=== PATIENT | female | born 1995 | race Caucasian/White ===

== ENCOUNTER 2017-03-19 13:30 | Emergency (ER) | payer OTHER ==
[~2017-03-19] VITALS: Ht 152.4 cm; Wt 51.5 kg
[~2017-03-19 13:30] MED LIST: AZIT500I PO; CEPH500C3 PO; FERR324T4 PO; IBUP800T23 PO; METR-1 PO; OXYC1SOL5 PO; PREN0.01 PO; ZOVI400T15 PO
[2017-03-19 13:38] VITALS: BP 119/72; PULSE 89; RESP 16; TEMP 98.3; O2SAT 95
[2017-03-19] MEDS ORDERED: SODIUM CHLOR 0.9% 1000 ML INJ 1,000 ML IV ONE (14:15)
[2017-03-19 14:54] LABS: AUTOMATED NEUTROPHIL # 6.6 TH/MM3 (1.8-7.7); BASOPHIL % 0.3 % (0.0-2.0); EOSINOPHIL # 0.2 TH/MM3 (0-0.4); EOSINOPHIL % 1.7 % (0.0-4.0); HEMATOCRIT 42.7 % (35.0-46.0); HEMO FLAGS DIFF FINAL; LYMPH % 25.3 % (9.0-44.0); LYMPHOCYTE # 2.6 TH/MM3 (1.0-4.8); MEAN CELL VOLUME 83.2 FL (80.0-100.0); MEAN CORPUSCULAR HEMOGLOBIN 28.6 PG (27.0-34.0); MEAN CORPUSCULAR HGB CONC 34.4 % (32.0-36.0); MONO % 7.2 % (0.0-8.0); NEUT % 65.5 % (16.0-70.0); PLATELET COUNT 233 TH/MM3 (150-450); RED BLOOD COUNT 5.13 MIL/MM3 (4.00-5.30); RED CELL DISTRIBUTION WIDTH 13.2 % (11.6-17.2); WHITE BLOOD COUNT 10.1 TH/MM3 (4.0-11.0)
[2017-03-19 14:56] LABS: BACTERIA, URINE OCC /hpf; BLOOD, URINE LARGE (NEG); COMMENT (UR) CULTURE INDICATED; CULTURE IF INDICATED CULTURE INDICATED; GLUCOSE,URINE 1000 mg/dL (NEG); KETONE, URINE 10 mg/dL (NEG); MUCUS URINE FEW /lpf (OCC); NITRITE,URINE NEG (NEG); PH, URINE 6.5 (5.0-8.5); SQUAMOUS EPITHELIAL CELL URINE 8 /hpf (0-5); URINE COLOR LIGHT-RED (YELLW/STRAW)
[2017-03-19 15:29] LABS: BETA-HYDROXYBUTYRATE 0.14 MMOL/L (0.00-0.39)
[2017-03-19 15:31] LABS: BICARBONATE 23.8 MEQ/L (21.0-32.0); POTASSIUM 3.7 MEQ/L (3.5-5.1)
--- NOTE | 2017-03-19 16:51 | RADRPT ---
EXAM DATE/TIME: 03/19/2017 15:49 [facility] COMPARISON: No previous studies available for comparison. INDICATIONS : Vaginal bleeding. LAB(S): Beta-hC MEDICAL HISTORY : Hypercholesterolemia. Kidney stones. Diabetes. Depresion. Anxiety. Endocrine disorder. SURGICAL HISTORY : section. Lithotripsy. ENCOUNTER: Initial ACUITY: 1 week PAIN SCORE: 7/10 LOCATION: Bilateral pelvis MEASUREMENTS: UTERUS: 8.1 x 6.4 x 4.5 cm ENDOMETRIAL STRIPE: 11 mm RIGHT OVARY: 3.5 x 2.0 x 1.8 cm LEFT OVARY: 3.2 x 2.0 x 2.3 cm FREE FLUID: No FINDINGS: UTERUS: A cystic structure seen involving the endometrium. Mean sac diameter 1.72 cm which equals 6 weeks ges tational age. No discrete pole currently observed. A faint circular structure is felt to relate to the yolk sac. The myometrium is unremarkable. RIGHT OVARY: Ovary contains no mass or significant cystic lesion. LEFT OVARY: Ovary contains no mass or significant cystic lesion. MISCELLANEOUS: No free fluid. CONCLUSION: Intrauterine gestation with age by mean sac diameter of 6 weeks. No discrete pole currently see cornelius Luis Jr., MD on March 19, 2017 at 16:46 Board Certified Radiologist. This report was verified electronically.
[2017-03-19] MEDS ORDERED: AMOX500T PO (17:13)
--- NOTE | 2017-03-19 17:13 | PD ---
HPI Chief Complaint: Related Problem Time Seen by Provider: 14:02 Travel History International Travel<30 days: No Contact w/Intl Traveler<30days: No Traveled to known affect area: No History of Present Illness HPI Patient is a 21-year-old female who is currently , who comes in complaining of vaginal bleeding. She says she is bleeding for the past 3 days. She's had some lower abdominal cramping on and off. She denies any dizziness or lightheadedness. She was once before, and had a stillbirth due to heart defects. She has history of 2diabetes, but says she cannot afford her insulin because her Medicaid has not started yet. She denies any fever or chills. She denies any dysuria. PFSH Past Medical History ADD: Yes ADHD: Yes Autoimmune Disease: No Bipolar Disorder: Yes Anxiety: Yes Depression: Yes Cancer: No Cardiovascular Problems: Yes High Cholesterol: Yes (TRIGLYCERIDES) Diabetes: Yes Patient Takes Glucophage: No Diminished Hearing: No Endocrine: Yes Gastrointestinal Disorders: No Genitourinary: Yes Immune Disorder: No Implanted Vascular Access Dvce: No Kidney Stones: Yes Musculoskeletal: No Neurologic: No Psychiatric: Yes Reproductive: No Respiratory: No Migraines: No Seizures: No Shingles: No Sickle Cell Disease: No Thyroid Disease: No Ulcer: No Tetanus Vaccination: Unknown Influenza Vaccination: Yes ?: LMP: UNKNOWN : 1 Para: 1 Past Surgical History Appendectomy: No Section: Yes Cholecystectomy: No Genitourinary Surgery: Yes (LITHOTRIPSY) Oral Surgery: Yes (MOLARS X 4 REMOVED) Other Surgery: No Social History Alcohol Use: No Tobacco Use: Yes Substance Use: No Allergies-Medications (Allergen,Severity, Reaction): Coded Allergies: No Known Allergies (Unverified , 03/19/17) Reported Meds & Prescriptions Reported Meds & Active Scripts Active Amoxicillin 500 Mg Tab 500 Mg PO TID 7 Days Review of Systems Except as stated in HPI: all other systems reviewed are Neg General / Constitutional: No: Fever, Chills HENT: No: Headaches, Lightheadedness Cardiovascular: No: Chest Pain or Discomfort Respiratory: No: Shortness of Breath Gastrointestinal: No: Nausea, Vomiting Genitourinary: Positive: Vaginal Bleeding Skin: No Rash, No Change in Pigmentation Neurologic: No: Dizziness, Syncope Physical Exam Narrative GENERAL: Awake and alert, in no acute distress. SKIN: Focused skin assessment warm/dry. HEAD: Atraumatic. Normocephalic. EYES: Pupils equal and round. No scleral icterus. ENT: Mucous membranes pink and moist. NECK: Trachea midline. No JVD. CARDIOVASCULAR: Regular rate and rhythm. No murmur appreciated. RESPIRATORY: No accessory muscle use. Clear to auscultation. Breath sounds equal bilaterally. GASTROINTESTINAL: Abdomen soft, non-tender, nondistended. : Exam performed in the presence of a female nurse. There is blood in the vaginal vault, minimal blood from the os. No CMT. External os is open, but internal os closed. MUSCULOSKELETAL: No obvious deformities. No clubbing. No cyanosis. No edema. NEUROLOGICAL: Awake and alert. No obvious cranial nerve deficits. Motor grossly within normal limits. Normal speech. PSYCHIATRIC: Appropriate mood and affect; insight and judgment normal. Data Data Last Documented VS Vital Signs Date Time Temp Pulse Resp B/P Pulse Ox O2 Delivery O2 Flow Rate FiO2 03/19/17 14:05 16 03/19/17 13:38 98.3 89 119/72 95 Orders Complete Blood Count With Diff (03/19/17 14:03) Basic Metabolic Panel (Bmp) (03/19/17 14:03) Beta Hcg (Quant/Titer) (03/19/17 14:03) Beta Hydroxybutyrate (Acetone) (03/19/17 14:03) Type And Screen (03/19/17 14:03) Sodium Chlor 0.9% 1000 Ml Inj (Ns 1000 M (03/19/17 14:15) Iv Access Insert/Monitor (03/19/17 14:03) Urinalysis - C+S If Indicated (03/19/17 14:05) Ed Poc Ultrasound (03/19/17 ) Rhogam Only (03/19/17 14:16) Us Pelvis (Ques Preg/Ectopic) (03/19/17 ) Urine Culture (03/19/17 14:15) Labs Laboratory Tests Test 03/19/17 03/19/17 14:15 14:16 White Blood Count 10.1 TH/MM3 Red Blood Count 5.13 MIL/MM3 Hemoglobin 14.7 GM/DL Hematocrit 42.7 % Mean Corpuscular Volume 83.2 FL Mean Corpuscular Hemoglobin 28.6 PG Mean Corpuscular Hemoglobin 34.4 % Concent Red Cell Distribution Width 13.2 % Platelet Count 233 TH/MM3 Mean Platelet Volume 8.7 FL Neutrophils (%) (Auto) 65.5 % Lymphocytes (%) (Auto) 25.3 % Monocytes (%) (Auto) 7.2 % Eosinophils (%) (Auto) 1.7 % Basophils (%) (Auto) 0.3 % Neutrophils # (Auto) 6.6 TH/MM3 Lymphocytes # (Auto) 2.6 TH/MM3 Monocytes # (Auto) 0.7 TH/MM3 Eosinophils # (Auto) 0.2 TH/MM3 Basophils # (Auto) 0.0 TH/MM3 CBC Comment DIFF FINAL Differential Comment Urine Color LIGHT-RED Urine Turbidity HAZY Urine pH 6.5 Urine Specific [place] 1.033 Urine Protein 30 mg/dL Urine Glucose (UA) 1000 mg/dL Urine Ketones 10 mg/dL Urine Occult Blood LARGE Urine Nitrite NEG Urine Bilirubin NEG Urine Urobilinogen LESS THAN 2.0 MG/DL Urine Leukocyte Esterase SMALL Urine RBC /hpf Urine WBC /hpf Urine Squamous Epithelial 8 /hpf Cells Urine Amorphous Sediment RARE Urine Bacteria OCC /hpf Urine Mucus FEW /lpf Microscopic Urinalysis Comment CULTURE INDICATED Sodium Level 137 MEQ/L Potassium Level 3.7 MEQ/L Chloride Level 104 MEQ/L Carbon Dioxide Level 23.8 MEQ/L Anion Gap 9 MEQ/L Blood Urea Nitrogen 11 MG/DL Creatinine 0.52 MG/DL Estimat Glomerular Filtration 146 ML/MIN Rate Random Glucose 259 MG/DL Calcium Level 8.3 MG/DL Human Chorionic Gonadotropin, 4461 MIU/ML Quant B-Hydroxybutyrate 0.14 MMOL/L Blood Type O NEGATIVE Antibody Screen NEGATIVE Blood Bank Comment [facility] Medical Decision Making Medical Screen Exam Complete: Yes Emergency Medical Condition: Yes Medical Record Reviewed: Yes Differential Diagnosis Threatened versus inevitable versus completed Narrative Course Patient is a 21-year-old female who comes in complaining of bleeding during . Exam shows blood in the vaginal vault, minimal blood from the os. IV established, labs sent. Labs show a beta hCG of 4461. Patient is Rh-. Urinalysis is positive for bacteria. She is given RhoGAM. Ultrasound performed shows a IUP of 6 weeks. Last 24 hours Impressions Pelvis Ultrasound 03/19/17 0000 Signed Impressions: Service Date/Time: Sunday, March 19, 2017 15:49 - CONCLUSION: Intrauterine gestation with age by mean sac diameter of 6 weeks. No discrete pole currently seen. Anthony Luis Jr., MD Patient advised of results. She is advised follow-up with OB. Advised to return to the ED as needed for any worsening symptoms. Given a prescription for amoxicillin for the bacteria in her urine. Diagnosis Primary Impression: Threatened Additional Impression: UTI (urinary tract infection) Qualified Code: N30.00 - Acute cystitis without hematuria Patient Instructions: General Instructions, Threatened Miscarriage (ED), Urinary Tract Infection in Women (ED) Additional Instructions: Follow up with OB. Avoid sexual intercourse for the next 1-2 weeks. Return tot he ED as needed for any worsening symptoms. Scripts Amoxicillin 500 Mg Bee832 Mg PO TID 7 Days Ref 0 Prov:Mora Oro MD 03/19/17 Disposition: 01 DISCHARGE HOME Condition: Stable Mora Oro MD Mar 19, 2017 17:13
--- NOTE | 2017-03-21 16:31 | RADRPT ---
EXAM DATE/TIME: 03/19/2017 15:49 [place] Corrected on: March 21, 2017; Updated Header [facility] COMPARISON: No previous studies available for comparison. INDICATIONS : Vaginal bleeding. LAB(S): Beta-hC MEDICAL HISTORY : Hypercholesterolemia. Kidney stones. Diabetes. Depresion. Anxiety. Endocrine disorder. SURGICAL HISTORY : section. Lithotripsy. ENCOUNTER: Initial ACUITY: 1 week PAIN SCORE: 7/10 LOCATION: Bilateral pelvis MEASUREMENTS: UTERUS: 8.1 x 6.4 x 4.5 cm ENDOMETRIAL STRIPE: 11 mm RIGHT OVARY: 3.5 x 2.0 x 1.8 cm LEFT OVARY: 3.2 x 2.0 x 2.3 cm FREE FLUID: No FINDINGS: UTERUS: A cystic structure seen involving the endometrium. Mean sac diameter 1.72 cm which equals 6 weeks ges tational age. No discrete pole currently observed. A faint circular structure is felt to relate to the yolk sac. The myometrium is unremarkable. RIGHT OVARY: Ovary contains no mass or significant cystic lesion. LEFT OVARY: Ovary contains no mass or significant cystic lesion. MISCELLANEOUS: No free fluid. CONCLUSION: Intrauterine gestation with age by mean sac diameter of 6 weeks. No discrete pole currently see cornelius Luis Jr., MD on March 19, 2017 at 16:46 Board Certified Radiologist. This report was verified electronicall Board Certified Radiologist. This report was verified electronically.[email or web address]
== END 2017-03-19 17:23 | disposition home or self-care (01) ==
LOC: NEPD 13:30
DX: O20.0 Threatened abortion (principal); O23.41 Unspecified infection of urinary tract in pregnancy, first trimester; O99.341 Other mental disorders complicating pregnancy, first trimester; F90.9 Attention-deficit hyperactivity disorder, unspecified type; F31.9 Bipolar disorder, unspecified; F41.9 Anxiety disorder, unspecified; O24.911 Unspecified diabetes mellitus in pregnancy, first trimester; O99.331 Smoking (tobacco) complicating pregnancy, first trimester; Z3A.01 Less than 8 weeks gestation of pregnancy
CPT/HCPCS: 76700; 76817; 80048; 81001; 82010; 84702; 85025; 86850; 86900; 86901; 87086; 90384; 96360; 96361; 96372; 99285; J7030; J2790

== ENCOUNTER 2017-03-21 16:18 | Emergency (ER) | payer OTHER ==
[~2017-03-21] VITALS: Ht 152.4 cm; Wt 60.0 kg
[~2017-03-21 16:18] MED LIST changes: +AMOX500T PO; -AZIT500I PO; -CEPH500C3 PO; -FERR324T4 PO; -IBUP800T23 PO; -METR-1 PO; -OXYC1SOL5 PO; -PREN0.01 PO; -ZOVI400T15 PO
[2017-03-21 16:21] VITALS: BP 127/77; PULSE 109; RESP 19; TEMP 98.3; O2SAT 98
[2017-03-21] MEDS ORDERED: MORPHINE SULFATE 4 MG/ML INJ IV PUSH ONE (16:45)
[2017-03-21] MEDS ORDERED: ONDANSETRON HCL 4 MG/2 ML VIAL IV PUSH ONE (16:45)
--- NOTE | 2017-03-21 17:06 | PD ---
HPI Chief Complaint: Related Problem Time Seen by Provider: 17:01 Travel History International Travel<30 days: No Contact w/Intl Traveler<30days: No Traveled to known affect area: No History of Present Illness HPI 21-year-old female that presents to the ED for evaluation of lower abdominal cramping with bleeding. Per patient she's had this since Friday. Per patient he started with bleeding when she developed a cramping. Patient was actually seen here 2 days ago for similar. Patient had an ultrasound that showed an IUP but no heart tones. She was given RhoGAM and there was concern for threatened miscarriage. Patient also apparently has a history of diabetes and takes no insulin because she cannot afford it secondary to not having Medicaid yet. She states that the pain is 8 out of 10. She is not taking anything for the pain. Pain does not radiate. She was diagnosed with UTI on her last visit here on taking amoxicillin. Patient comes here with mother who provides most of the information. Patient herself appears to be anxious and actively sobbing. Per patient the bleeding has become more severe and is more clotting. She has no allergies to medication. PFSH Past Medical History ADD: Yes ADHD: Yes Autoimmune Disease: No Bipolar Disorder: Yes Anxiety: Yes Depression: Yes Cancer: No Cardiovascular Problems: Yes High Cholesterol: Yes (TRIGLYCERIDES) Diabetes: Yes Patient Takes Glucophage: No Diminished Hearing: No Endocrine: Yes Gastrointestinal Disorders: No Genitourinary: Yes Immune Disorder: No Implanted Vascular Access Dvce: No Kidney Stones: Yes Musculoskeletal: No Neurologic: No Psychiatric: Yes Reproductive: Yes Respiratory: No Migraines: No Seizures: No Shingles: No Sickle Cell Disease: No Thyroid Disease: No Ulcer: No Tetanus Vaccination: Unknown ?: LMP: 02/08/17 : 2 Para: 1 Miscarriage: 2 Past Surgical History Appendectomy: No Section: Yes Cholecystectomy: No Genitourinary Surgery: Yes (LITHOTRIPSY) Oral Surgery: Yes (MOLARS X 4 REMOVED) Other Surgery: No Social History Alcohol Use: No Tobacco Use: No Substance Use: No Allergies-Medications (Allergen,Severity, Reaction): Coded Allergies: No Known Allergies (Unverified , 03/19/17) Reported Meds & Prescriptions Reported Meds & Active Scripts Active Amoxicillin 500 Mg Tab 500 Mg PO TID 7 Days Review of Systems Except as stated in HPI: all other systems reviewed are Neg Physical Exam Narrative GENERAL: SKIN: Warm and dry. HEAD: Atraumatic. Normocephalic. EYES: Pupils equal and round. No scleral icterus. No injection or drainage. ENT: No nasal bleeding or discharge. Mucous membranes pink and moist. Tongue is midline. No uvula deviation. NECK: Trachea midline. No JVD. CARDIOVASCULAR: Regular rate and rhythm. RESPIRATORY: No accessory muscle use. Clear to auscultation. Breath sounds equal bilaterally. GASTROINTESTINAL: Abdomen soft, tender to palpation on the lower abdomen, nondistended. Hepatic and splenic margins not palpable. Pelvic exam: revealed no masses or adnexa tenderness. Only blood noted. What appears to be product noted. MUSCULOSKELETAL: Extremities without clubbing, cyanosis, or edema. No obvious deformities. Full range of motion of the upper and lower extremities bilaterally. 2+ pulses bilaterally. NEUROLOGICAL: Awake and alert. No obvious cranial nerve deficits. Motor grossly within normal limits. Five out of 5 muscle strength in the arms and legs. Normal speech. PSYCHIATRIC: Appropriate mood and affect; insight and judgment normal. Data Data Last Documented VS Vital Signs Date Time Temp Pulse Resp B/P Pulse Ox O2 Delivery O2 Flow Rate FiO2 03/21/17 16:21 98.3 109 19 127/77 98 Room Air Orders Beta Hcg (Quant/Titer) (03/21/17 16:33) Complete Blood Count With Diff (03/21/17 16:33) Basic Metabolic Panel (Bmp) (03/21/17 16:33) Gc And Chlamydia Pcr (03/21/17 16:33) Wet Prep Profile (03/21/17 16:33) Urinalysis - C+S If Indicated (03/21/17 16:33) Morphine Inj (Morphine Inj) (03/21/17 16:45) Ondansetron Inj (Zofran Inj) (03/21/17 16:45) Morphine Inj (Morphine Inj) (03/21/17 17:40) Labs Laboratory Tests Test 03/21/17 16:55 White Blood Count 12.1 TH/MM3 Red Blood Count 5.57 MIL/MM3 Hemoglobin 15.9 GM/DL Hematocrit 46.8 % Mean Corpuscular Volume 84.1 FL Mean Corpuscular Hemoglobin 28.5 PG Mean Corpuscular Hemoglobin 33.9 % Concent Red Cell Distribution Width 13.2 % Platelet Count 265 TH/MM3 Mean Platelet Volume 8.1 FL Neutrophils (%) (Auto) 72.5 % Lymphocytes (%) (Auto) 20.1 % Monocytes (%) (Auto) 5.8 % Eosinophils (%) (Auto) 1.2 % Basophils (%) (Auto) 0.4 % Neutrophils # (Auto) 8.8 TH/MM3 Lymphocytes # (Auto) 2.4 TH/MM3 Monocytes # (Auto) 0.7 TH/MM3 Eosinophils # (Auto) 0.1 TH/MM3 Basophils # (Auto) 0.0 TH/MM3 CBC Comment DIFF FINAL Differential Comment Urine Color YELLOW Urine Turbidity HAZY Urine pH 6.5 Urine Specific [place] 1.038 Urine Protein 300 mg/dL Urine Glucose (UA) 1000 mg/dL Urine Ketones 10 mg/dL Urine Occult Blood LARGE Urine Nitrite NEG Urine Bilirubin NEG Urine Urobilinogen LESS THAN 2.0 MG/DL Urine Leukocyte Esterase NEG Urine RBC /hpf Microscopic Urinalysis Comment CULT NOT INDICATED Sodium Level 134 MEQ/L Potassium Level 4.0 MEQ/L Chloride Level 103 MEQ/L Carbon Dioxide Level 22.6 MEQ/L Anion Gap 8 MEQ/L Blood Urea Nitrogen 13 MG/DL Creatinine 0.53 MG/DL Estimat Glomerular Filtration 143 ML/MIN Rate Random Glucose 279 MG/DL Calcium Level 9.3 MG/DL Human Chorionic Gonadotropin, 2936 MIU/ML Quant MDM Medical Decision Making Medical Screen Exam Complete: Yes Emergency Medical Condition: Yes Medical Record Reviewed: Yes Interpretation(s) CBC & BMP Diagram 03/21/17 16:55 Beta HCG in the UA showed some blood. Differential Diagnosis Miscarriage versus threatened versus vaginal bleeding versus UTI versus abdominal pain Narrative Course 21-year-old female that presents to the ED for evaluation of vaginal bleeding and lower pelvic pain. Patient was properly examined and was found to have signs and symptoms very concerning serving for miscarriage. Patient likely actively miscarriage in this time. Unclear why patient has not taken anything for discomfort but this time recommend labs and imaging. Patient is agreeable with this plan. Before pelvic exam could be done patient call nurse to the room as she apparently had passed "something ". Dr. Moreno and myself evaluated the patient and he does seem to the patient did pass the embryo. Pelvic exam was done as well and showed only blood with no sign of other disease. Patient was reassured and unfortunately told that she likely had a miscarriage. She was told as to what to look for. We'll recommend trial of anti-inflammatories for pain. Patient was given a prescription for diclofenac sodium to help with the pain. She was told she can take Tylenol or Motrin for pain as well. She was instructed to avoid sex until completely better. I recommended to the patient to give herself at least 3-6 months before she starts crying if she wants to have another baby. Follow with PCP. See ED worsening symptoms. Diagnosis Primary Impression: Complete Patient Instructions: General Instructions Departure Forms: Tests/Procedures, Work Release Enter return to work date: Mar 24, 2017 Additional Instructions: You can take Tylenol or Motrin for pain. Take lots of fluids. Avoid sexual relations for least 2-3 weeks. See ED for worsening symptoms. Bleeding showed galley get better almost like a period. Follow with [facility]. You can follow with [facility] clinic to help with your diabetes and other chronic medical issues. they see patient with no insurance and might be able to help you. Med/Other Pt SpecificInfo: Prescription(s) given Disposition: 01 DISCHARGE HOME Condition: Santy Blanco Mar 21, 2017 17:06
[2017-03-21] MEDS ORDERED: MORPHINE SULFATE 8 MG/ML INJ ONE (17:40)
[2017-03-21 17:55] LABS: AUTOMATED NEUTROPHIL # 8.8 TH/MM3 (1.8-7.7); BASOPHIL % 0.4 % (0.0-2.0); EOSINOPHIL # 0.1 TH/MM3 (0-0.4); EOSINOPHIL % 1.2 % (0.0-4.0); HEMATOCRIT 46.8 % (35.0-46.0); HEMO FLAGS DIFF FINAL; LYMPH % 20.1 % (9.0-44.0); LYMPHOCYTE # 2.4 TH/MM3 (1.0-4.8); MEAN CELL VOLUME 84.1 FL (80.0-100.0); MEAN CORPUSCULAR HEMOGLOBIN 28.5 PG (27.0-34.0); MEAN CORPUSCULAR HGB CONC 33.9 % (32.0-36.0); MONO % 5.8 % (0.0-8.0); NEUT % 72.5 % (16.0-70.0); PLATELET COUNT 265 TH/MM3 (150-450); RED BLOOD COUNT 5.57 MIL/MM3 (4.00-5.30); RED CELL DISTRIBUTION WIDTH 13.2 % (11.6-17.2); WHITE BLOOD COUNT 12.1 TH/MM3 (4.0-11.0)
[2017-03-21 18:31] LABS: BLOOD, URINE LARGE (NEG); COMMENT (UR) CULT NOT INDICATED; CULTURE IF INDICATED CULT NOT INDICATED; GLUCOSE,URINE 1000 mg/dL (NEG); KETONE, URINE 10 mg/dL (NEG); NITRITE,URINE NEG (NEG); PH, URINE 6.5 (5.0-8.5); URINE COLOR YELLOW (YELLW/STRAW)
[2017-03-21 18:33] LABS: BICARBONATE 22.6 MEQ/L (21.0-32.0)
[2017-03-21] MEDS ORDERED: DICL75TA PO (18:43)
[2017-03-22 06:54] LABS: CHLAMYDIA PCR NOT DETECTED (NOT DETECT); NEISSERIA PCR NOT DETECTED (NOT DETECT)
== END 2017-03-21 19:19 | disposition home or self-care (01) ==
LOC: NEPC 16:18
DX: O03.9 Complete or unspecified spontaneous abortion without complication (principal); R10.2 Pelvic and perineal pain; E11.9 Type 2 diabetes mellitus without complications; E78.5 Hyperlipidemia, unspecified; Z86.59 Personal history of other mental and behavioral disorders; Z87.448 Personal history of other diseases of urinary system; Z3A.00 Weeks of gestation of pregnancy not specified
CPT/HCPCS: 80048; 81001; 84702; 85025; 87210; 87491; 87591; 96374; 96375; 99284; J2270; J2405

== ENCOUNTER 2017-10-20 10:40 | Emergency (ER) | payer OTHER ==
[~2017-10-20] VITALS: Ht 149.9 cm; Wt 58.0 kg
[~2017-10-20 10:40] MED LIST changes: +DICL75TA PO
[2017-10-20 10:43] VITALS: BP 120/68; PULSE 98; RESP 14; TEMP 98.1; O2SAT 99
--- NOTE | 2017-10-20 13:05 | PD ---
HPI Chief Complaint: Related Problem Time Seen by Provider: 12:22 Travel History International Travel<30 days: No Contact w/Intl Traveler<30days: No Traveled to known affect area: No History of Present Illness HPI The patient is a 21-year-old female who is a , who delivered a stillborn at 38 weeks of via section and had a spontaneous at 6 weeks of . The patient states her last menstrual cycle was approximately July 13, 2017. The patient notes over the last week she's had some lower abdominal discomfort and cramping, denies any vaginal bleeding. She does have a history of oh negative blood type. She denies any dysuria, frequency, urgency, or significant nausea and vomiting. She has been taking a vitamin. She has not sought on stretcher care prior to arrival. The patient did have a positive test at a Center at the end of August. She denies any vaginal bleeding or discharge. Symptoms are mild. PFSH Past Medical History ADD: Yes ADHD: Yes Autoimmune Disease: No Bipolar Disorder: Yes Anxiety: Yes Depression: Yes Cancer: No Cardiovascular Problems: Yes High Cholesterol: Yes (TRIGLYCERIDES) Diabetes: Yes Patient Takes Glucophage: No Diminished Hearing: No Endocrine: Yes Gastrointestinal Disorders: No Genitourinary: Yes Heparin Induced Thrombocytopen: No Immune Disorder: No Implanted Vascular Access Dvce: No Kidney Stones: Yes Musculoskeletal: No Neurologic: No Psychiatric: Yes Reproductive: Yes Respiratory: No Migraines: No Seizures: No Shingles: No Sickle Cell Disease: No Thyroid Disease: No Ulcer: No ?: LMP: 07/2017 : 2 Para: 1 Miscarriage: 2 Past Surgical History Appendectomy: No Section: Yes Cholecystectomy: No Genitourinary Surgery: Yes (LITHOTRIPSY) Oral Surgery: Yes (MOLARS X 4 REMOVED) Other Surgery: No Social History Alcohol Use: No Tobacco Use: No Substance Use: No Allergies-Medications (Allergen,Severity, Reaction): Coded Allergies: No Known Allergies (Unverified Adverse Reaction, Unknown, 10/20/17) Reported Meds & Prescriptions Reported Meds & Active Scripts Active Diclofenac Sodium DR (Diclofenac Sodium) 75 Mg Tabdr 75 Mg PO BID PRN Amoxicillin 500 Mg Tab 500 Mg PO TID 7 Days Review of Systems Except as stated in HPI: all other systems reviewed are Neg General / Constitutional: No: Fever Cardiovascular: No: Chest Pain or Discomfort Respiratory: No: Shortness of Breath Gastrointestinal: No: Nausea, Vomiting, Abdominal Pain Genitourinary: Positive: Pelvic Pain, No: Dysuria, Hematuria, Discharge, Vaginal Bleeding Physical Exam Narrative GENERAL: Awake, alert, nontoxic-appearing 21-year-old female who appears her stated age and is in no acute respiratory distress. SKIN: Focused skin assessment warm/dry. HEAD: Atraumatic. Normocephalic. EYES: No injection or drainage. ENT: No nasal bleeding or discharge. Mucous membranes pink and moist. NECK: Trachea midline. No JVD. GASTROINTESTINAL: Abdomen soft, gravid inferior to the umbilicus. Back: No CVA tenderness. Pelvic: Exam was performed in the presence of a female nurse. Patient reveals no rashes or lesions. Speculum examination reveals thick white discharge in the vaginal wall. Cervix is closed, there is a soft, pink colored flash area on the top of the cervix that over hangs the os. MUSCULOSKELETAL: No obvious deformities. No clubbing. No cyanosis. No edema. NEUROLOGICAL: Awake and alert. No obvious cranial nerve deficits. Motor grossly within normal limits. Normal speech. PSYCHIATRIC: Appropriate mood and affect; insight and judgment normal. Data Data Last Documented VS Vital Signs Date Time Temp Pulse Resp B/P (MAP) Pulse Ox O2 Delivery O2 Flow Rate FiO2 10/20/17 10:43 98.1 98 14 120/68 (85) 99 Orders Orders Ed Poc Ultrasound (10/20/17 ) Ed Urine Pregnancytest Poc (10/20/17 12:28) Gc And Chlamydia Pcr (10/20/17 12:39) Wet Prep Profile (10/20/17 12:39) Urinalysis - C+S If Indicated (10/20/17 12:39) Urine Culture (10/20/17 12:40) Labs Laboratory Tests Test 10/20/17 12:40 10/20/17 13:10 Urine Color YELLOW Urine Turbidity HAZY Urine pH 7.0 Urine Specific Levels 1.022 Urine Protein TRACE mg/dL Urine Glucose (UA) 1000 mg/dL Urine Ketones NEG mg/dL Urine Occult Blood NEG Urine Nitrite NEG Urine Bilirubin NEG Urine Urobilinogen 2.0 MG/DL Urine Leukocyte Esterase TRACE Urine RBC 1 /hpf Urine WBC 2 /hpf Urine Squamous Epithelial Cells 14 /hpf Urine Bacteria MOD /hpf Urine Mucus FEW /lpf Microscopic Urinalysis Comment CULTURE INDICATED Clue Cells (Wet Prep) PRESENT Vaginal Trichomonas (Wet Prep) NONE SEEN Vaginal Yeast (Wet Prep) NONE SEEN MDM Medical Decision Making Medical Screen Exam Complete: Yes Emergency Medical Condition: Yes Medical Record Reviewed: Yes Interpretation(s) Laboratory Tests Test 10/20/17 12:40 10/20/17 13:10 Urine Color YELLOW Urine Turbidity HAZY Urine pH 7.0 Urine Specific Levels 1.022 Urine Protein TRACE mg/dL Urine Glucose (UA) 1000 mg/dL Urine Ketones NEG mg/dL Urine Occult Blood NEG Urine Nitrite NEG Urine Bilirubin NEG Urine Urobilinogen 2.0 MG/DL Urine Leukocyte Esterase TRACE Urine RBC 1 /hpf Urine WBC 2 /hpf Urine Squamous Epithelial Cells 14 /hpf Urine Bacteria MOD /hpf Urine Mucus FEW /lpf Microscopic Urinalysis Comment CULTURE INDICATED Clue Cells (Wet Prep) PRESENT Vaginal Trichomonas (Wet Prep) NONE SEEN Vaginal Yeast (Wet Prep) NONE SEEN Differential Diagnosis Differential diagnosis includes , threatened AB, incomplete AB, ectopic , UTI, PID, cervicitis. Narrative Course A UA was sent to lab. Bedside transabdominal ultrasound was performed with a curvilinear probe which reveals positive heart tones. A pelvic exam was completed in the presence of a female nurse. UA reveals bacteria. Wet prep is positive for clue cells, patient will be treated for bacterial vaginosis with Flagyl 500 mg twice a day. She will be referred to the women's care clinic. Procedures Procedure Narrative A bedside ultrasound, transabdominal, was performed with a curvilinear probe reveal an IUP with positive movement and positive heart tones. The patient was shown the exam as it was performed real-time. The patient tolerated the procedure without difficulty and there is no obvious complications. Diagnosis Primary Impression: Qualified Codes: Z34.90 - Encounter for supervision of normal , unspecified, unspecified trimester Additional Impression: Bacterial vaginosis Referrals: [facility] Patient Instructions: General Instructions Additional Instructions: Flagyl as directed. Take a vitamin daily. Follow-up at the women's care clinic. Return if symptoms worsen or progress. Med/Other Pt SpecificInfo: Prescription(s) given Scripts Metronidazole (Flagyl) 500 Mg Tab 500 MG PO BID for Infection for 7 Days, #14 TAB 0 Refills Prov: Logan Dykes MD 10/20/17 Disposition: 01 DISCHARGE HOME Condition: Stable Logan Dykes MD Oct 20, 2017 13:04
[2017-10-20 13:31] LABS: BACTERIA, URINE MOD /hpf; BILIRUBIN, URINE NEG (NEG); BLOOD, URINE NEG (NEG); GLUCOSE,URINE 1000 mg/dL (NEG); KETONE, URINE NEG (NEG); MUCUS URINE FEW /lpf (OCC); NITRITE,URINE NEG (NEG); SQUAMOUS EPITHELIAL CELL URINE 14 /hpf (0-5); URINE COLOR YELLOW (YELLW/STRAW); URINE LEUKOCYTE ESTERASE TRACE (NEG)
[2017-10-20] MEDS ORDERED: METR-1 PO (13:56)
[2017-10-20 14:06] VITALS: BP 124/62
== END 2017-10-20 14:07 | disposition home or self-care (01) ==
LOC: NEPD 10:40
DX: O23.599 Infection of other part of genital tract in pregnancy, unspecified trimester (principal); B96.89 Other specified bacterial agents as the cause of diseases classified elsewhere; O99.280 Endocrine, nutritional and metabolic diseases complicating pregnancy, unspecified trimester; E78.00 Pure hypercholesterolemia, unspecified; O24.919 Unspecified diabetes mellitus in pregnancy, unspecified trimester; O99.340 Other mental disorders complicating pregnancy, unspecified trimester; F90.9 Attention-deficit hyperactivity disorder, unspecified type; F31.9 Bipolar disorder, unspecified; Z87.442 Personal history of urinary calculi; Z79.899 Other long term (current) drug therapy
CPT/HCPCS: 81001; 84703; 87086; 87210; 87491; 87591

== ENCOUNTER → 2017-12-17 | Outpatient (CLI) | payer OTHER ==
[~2017-12-17] MED LIST changes: +METR-1 PO
== END ==
LOC: HPND 12:28
PROVIDERS: ATTEND Obstetrics & Gynecology
DX: O09.292 Supervision of pregnancy with other poor reproductive or obstetric history, second trimester (principal); O24.112 Pre-existing type 2 diabetes mellitus, in pregnancy, second trimester; O99.342 Other mental disorders complicating pregnancy, second trimester; O34.211 Maternal care for low transverse scar from previous cesarean delivery
CPT/HCPCS: 76811

== ENCOUNTER → 2018-01-14 | Outpatient (CLI) | payer OTHER | LOC: HPND 07:36 | PROVIDERS: ATTEND Obstetrics & Gynecology | DX: O24.112 Pre-existing type 2 diabetes mellitus, in pregnancy, second trimester (principal); O09.292 Supervision of pregnancy with other poor reproductive or obstetric history, second trimester; O99.342 Other mental disorders complicating pregnancy, second trimester | CPT/HCPCS: 76816; 76825; 76827; 93325 ==

== ENCOUNTER → 2018-01-28 | Outpatient (CLI) | payer OTHER | LOC: HPND 07:26 | PROVIDERS: ATTEND Obstetrics & Gynecology | DX: O24.012 Pre-existing type 1 diabetes mellitus, in pregnancy, second trimester (principal); O09.292 Supervision of pregnancy with other poor reproductive or obstetric history, second trimester; O99.342 Other mental disorders complicating pregnancy, second trimester | CPT/HCPCS: 76815 ==

== ENCOUNTER → 2018-02-11 | Outpatient (CLI) | payer OTHER | LOC: HPND 08:20 | PROVIDERS: ATTEND Obstetrics & Gynecology | DX: O24.112 Pre-existing type 2 diabetes mellitus, in pregnancy, second trimester (principal); O09.292 Supervision of pregnancy with other poor reproductive or obstetric history, second trimester | CPT/HCPCS: 76816 ==

== ENCOUNTER 2018-04-27 07:48 | Inpatient (IN) ==
[2018-04-27] MEDS ORDERED: Morphine Sulfate PF Inj 5 MG/10 ML Ampul ONE (07:54)
[2018-04-27] MEDS ORDERED: ceFAZolin Inj 2,000 MG in Sodium Chlor 0.9% Inj 80 ML IV.SIG SCH (08:00)
[2018-04-27] MEDS ORDERED: Citric Acid/Sodium Citrate Liq 30 ML UDC PO SCH (08:00)
[2018-04-27 08:04] LABS: Baso # (Auto) 0.1 th/mm3 (0.0-0.2); Baso % (Auto) 0.7 % (0.0-2.0); Eos # (Auto) 0.2 th/mm3 (0.0-0.4); Eos % (Auto) 1.6 % (0.0-4.0); Hematocrit 40.7 % (35.0-46.0); Hemoglobin 13.9 gm/dL (11.6-15.3); Lymph # (Auto) 1.9 th/mm3 (1.0-4.8); Lymph % (Auto) 20.1 % (9.0-44.0); Mean Corpuscular HGB Conc 34.1 % (32.0-36.0); Mean Corpuscular Hemoglobin 30.3 pg (27.0-34.0); Mean Corpuscular Volume 88.8 fL (80.0-100.0); Mean Platelet Volume 8.3 fL (7.0-11.0); Mono # (Auto) 0.7 th/mm3 (0.0-0.9); Mono % (Auto) 7.6 % (0.0-8.0); Neut # (Auto) 6.7 th/mm3 (1.8-7.7); Platelet Count 260 th/mm3 (150-450); Red Blood Count 4.58 mil/mm3 (4.00-5.30); Red Cell Distribution Width 13.5 % (11.6-17.2); White Blood Count 9.6 th/mm3 (4.0-11.0)
[2018-04-27] MEDS ORDERED: Citric Acid/Sodium Citrate Liq 30 ML UDC ONE (08:04)
[2018-04-27] MEDS ORDERED: Naloxone Inj 0.4 MG/ML Vial IV.PUSH PRN (08:20)
--- NOTE | 2018-04-27 08:40 | P.HPOB ---
History of Present Illness Primary Care Physician: No Primary Care Physician History of Present Illness: 22 yr G 3 p 1120 at 37 weeks and 4 days gestation with history of miscarriage, demise at full-term, and prior admitted for emergent delivery via due to distress observed on heart tracing during routine diagnostic checkup. She has been receiving throughout the duration of her and reports pre-gestational diabetes as the only complication. She endorsed minimal movement since this morning. She denies any leakage of fluid, vaginal bleeding, or vaginal discharge. Ob Hx: Patient has had 2 prior pregnancies. 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 PMHx: Kidney stones Surgical Hx: Medications: NovoLog 15, 4 times a day, Levemir 20 nightly, vitamins FHx: None Social Hx: Patient reports smoking half pack a day for duration of her , denies any alcohol, or drug use Allergies: None Para: 0 : 3 Total # of Miscarriage(s): 1 Total # of Abortions (Spontaneous & Elective): 1 ( demise at full-term due to congenital cardiac issues) - Inpatient Certification I certify that the inpatient services were ordered in accordance with Medicare regulations governing the order. This includes certification that hospital inpatient services are reasonable and necessary and in the case of services not specified as inpatient-only under 42 CFR 419.22(n), that they are appropriately provided as inpatient services in accordance to with the 2-midnight benchmark under 43 CFR 412.3(e) Review of Systems Constitutional: Denies chills, Denies fever(s), Denies headache(s), Denies dizziness Eyes: Denies change in vision Cardiovascular: Denies chest pain, Denies shortness of breath Respiratory: Denies shortness of breath or wheezing Gastrointestinal: Denies abdominal pain, Denies constipation, Denies loose stools, Denies nausea, Denies vomiting Genitourinary: Denies difficulty starting urination, Denies difficulty urinating , Denies painful urination OB: Reports minimal movement since this morning, Denies vaginal discharge or fluid PMFSH - History History Provided By: Patient - Medical History Medical History: Medical History (Last Updated 04/22/18 @ 16:48 by Ishan Lowry MD) Bipolar disorder Diabetes 1.5, managed as type 1 Kidney stones - Surgical History Surgical History: Surgical History (Last Updated 04/22/18 @ 16:41 by Ishan Lowry MD) Previous section - Tobacco History Smoking Status: Current every day smoker Packs Per Day: 0.5 - Alcohol History How Often Do You Have a Drink Containing Alcohol: Never - Substance Use History Substance History: No History of Abuse - Travel History History of Recent Travel: No Medications and Allergies Active Medications: Active Medications Citric Acid/Sodium Citrate (Sodium Citrate/Citric Acid Liq) 30 ml PO [employer]ILRO[employer] MESSENGER ANGEL Stop: 05/01/18 07:59 Cefazolin Sodium 2,000 mg/ (Sodium Chloride) 100 mls @ 200 mls/hr IV.SIG MAILROOM MESSENGER ANGEL Stop: 05/01/18 07:59 Lactated Ringer's (Lr 1000 Ml Inj) 1,000 mls @ 2,000 mls/hr IV.SIG .Q30M ONE Stop: 04/27/18 08:20 Lactated Ringer's (Lr 1000 Ml Inj) 1,000 mls @ 150 mls/hr IV.CONT .Q6H40M [facility] Allergies Allergy/AdvReac Type Severity Reaction Status Date / Time No Known Allergies AdvReac Unknown Uncoded 10/20/17 12:38 Home Medications Medication Instructions Recorded Confirmed Type insulin aspart U-100 [Novolog 15 unit SUB-Q QID 04/15/18 04/27/18 History U-100 Insulin aspart] insulin detemir U-100 [Levemir 20 unit SUB-Q QPM 04/15/18 04/27/18 History U-100 Insulin] vit,[id number] 1 tab PO DAILY 04/15/18 04/27/18 History [PNV 29-1] Exam Vital signs: Vital Signs 04/27/18 07:55 Pulse Rate 74 Narrative: GENERAL: Well-nourished, well-developed patient. SKIN: Warm and dry. HEAD: Normocephalic and atraumatic. EYES: No scleral icterus. No injection or drainage. CARDIOVASCULAR: Regular rate and rhythm without murmurs, gallops, or rubs. RESPIRATORY: Breath sounds equal bilaterally. No accessory muscle use. ABDOMEN/GI: Gravid, non-tender, bowel sounds present, no rebound, no guarding FHT's: Category: 3 Baseline: 150s Reactive: No Variability: Minimal Decels: Variables EXTREMITIES: No cyanosis or edema. BACK: Nontender without obvious deformity. No CVA tenderness. NEUROLOGICAL: Awake and alert. Moves all extremities without difficulty. Normal speech. Results - Labs CBC & Chem 7: 04/27/18 07:55 Labs: Laboratory Results - last 24 hr 04/27/18 07:55 WBC 9.6 RBC 4.58 Hgb 13.9 Hct 40.7 MCV 88.8 MCH 30.3 MCHC 34.1 RDW 13.5 Plt Count 260 MPV 8.3 Neut % (Auto) 70.0 Lymph % (Auto) 20.1 [place] % (Auto) 7.6 Eos % (Auto) 1.6 Baso % (Auto) 0.7 Neut # (Auto) 6.7 Lymph # (Auto) 1.9 [place] # (Auto) 0.7 Eos # (Auto) 0.2 Baso # (Auto) 0.1 WBC Differential . Differential Comment Auto diff final Caprini VTE Risk Assessment Caprini VTE Risk Assessment: No/Low Risk (score <= 1) Caprini Risk Assessment Model: Point Value = 1 Point Value = 2 Point Value = 3 Point Value = 5 Age 41-60 Minor surgery BMI > 25 kg/m2 Swollen legs Varicose veins or History of unexplained or recurrent spontaneous Oral contraceptives or hormone replacement Sepsis (< 1 month) Serious lung disease, including pneumonia (< 1 month) Abnormal pulmonary function Acute myocardial infarction Congestive heart failure (< 1 month) History of inflammatory bowel disease Medical patient at bed rest Age 61-74 Arthroscopic surgery Major open surgery (> 45 min) Laparoscopic surgery (> 45 min) Malignancy Confined to bed (> 72 hours) Immobilizing plaster cast Central venous access Age >= 75 History of VTE Family history of VTE Factor V Leiden Prothrombin [id number] Lupus anticoagulant Anticardiolipin antibodies Elevated serum homocysteine Heparin-induced thrombocytopenia Other congenital or acquired thrombophilia Stroke (< 1 month) Elective arthroplasty Hip, pelvis, or leg fracture Acute spinal cord injury (< 1 month) Prophylaxis Regimen: Total Risk Factor Score Risk Level Prophylaxis Regimen 0-1 Low Early ambulation 2 Moderate Order ONE of the following: *Sequential Compression Device (SCD) *Heparin 5000 units SQ BID 3-4 Higher Order ONE of the following medications: *Heparin 5000 units SQ TID *Enoxaparin/Lovenox 40 mg SQ daily (WT < 150 kg, CrCl > 30 mL/min) *Enoxaparin/Lovenox 30 mg SQ daily (WT < 150 kg, CrCl > 10-29 mL/min) *Enoxaparin/Lovenox 30 mg SQ BID (WT < 150 kg, CrCl > 30 mL/min) AND/OR *Sequential Compression Device (SCD) 5 or more Highest Order ONE of the following medications: *Heparin 5000 units SQ TID (Preferred with Epidurals) *Enoxaparin/Lovenox 40 mg SQ daily (WT < 150 kg, CrCl > 30 mL/min) *Enoxaparin/Lovenox 30 mg SQ daily (WT < 150 kg, CrCl > 10-29 mL/min) *Enoxaparin/Lovenox 30 mg SQ BID (WT < 150 kg, CrCl > 30 mL/min) AND *Sequential Compression Device (SCD) Assessment and Plan - Diagnosis (1) deliv due to previous difficult deliv, deliv, curr hospitaliz Code(s): O99.89 - Other specified diseases and conditions complicating , childbirth and the puerperium; Z87.59 - Personal history of other complications of , childbirth and the puerperium Status: Acute Plan: 22 yr G 3 p 1120 at 37 weeks and 4 days gestation with history of previous miscarriages and admitted for after distress that was found during routine diagnostic checkup. Upon arrival patient had no loss of fluids and denies any bleeding from vagina. She also reported minimal movement since this morning. Patient was taken emergently to the OR for repeat low transverse due to previous , high risk pregnancies, and current distress. -Delivery via section now -After delivery, continue routine care -Monitor surgical wound for signs of infection -Motrin and Percocet when necessary for pain -Encourage OOB -Pelvic rest for 6 weeks will need follow-up appointment at that time. -Anticipate discharge in 3 days (2) Insulin dependent diabetes mellitus Code(s): E11.9 - Type 2 diabetes mellitus without complications; Z79.4 - senior living (current) use of insulin Status: Acute Plan: Patient reports being a diabetic prior to and during this . Patient currently on 15 units of NovoLog, and Levemir 20 units at night. -Low-dose insulin sliding scale -10 units of Levemir at night -Routine postprandial [id number] glucose checks -Monitor for signs of hypoglycemia
[2018-04-27 09:10] LABS: Cord Arterial Blood HCO3 23.7
[2018-04-27] MEDS ORDERED: Oxytocin 30 Units/500ml Premix 30 UNITS/500 ML BAG IV.SIG ONE (09:24)
--- NOTE | 2018-04-27 09:34 | P.OBDELI ---
Procedure Note - Pre Op Diagnosis (1) 37 weeks gestation of (2) Previous section complicating (3) Insulin dependent diabetes mellitus (4) Breech presentation (5) Abdominal adhesions - Post Op Diagnosis (1) intolerance to labor, delivered, current hospitalization (2) Previous section complicating (3) Insulin dependent diabetes mellitus (4) Breech presentation (5) 37 weeks gestation of Performed by: John Mayer MD Procedure: Repeat Low Transverse Section Indication for Delivery: Nonreassuring heart tracing, malposition Informed Consent Obtained: For anesthesia, For procedure Confirmed Correct: Patient, Time-out taken Anesthesia: Spinal Medication Prior to Procedure: As documented in eMAR, Antacids, Antibiotics, IV Monitoring During Procedure: Blood pressure monitoring, quality assurance monitor body, Pulse oximetry Urinary Catheter: Inserted using sterile technique Sterile Preparation: Duraprep Position: Supine, Supine with wedge to left side - Operative Features Skin Incision: Pfannenstiel Uterine Incision: Low transverse w/knife / blunt ext Membranes Ruptured: Artificially, Appearance of fluid (heavy meconium, polyhydramnios) Status of : Viable, Cord blood, Umbilical cord, Nursery present, Resuscitation required Placenta Delivered: Intact, Sent to pathology Medications: Antibiotics, Oxytocin Estimated blood loss (mL): 700 Procedure Tolerated: Well Maternal Condition: Stable Baby Complications: Respiratory distress Baby Condition: Fair - Infant : Male Infant Delivery Date: 04/27/18 Delivery Time: 09:32 Weight: 0 g Delivery of Infant: Uneventful score (1 min): unknown score (5 min): unknown score (10 min): unknown (ph 6.958, BE -7.3, pco2 111 - respiratory acidosis)
[2018-04-27] MEDS ORDERED: Dextrose 50% in Water 50 ML Vial IV.PUSH PRN ×2 (09:55→10:01)
--- NOTE | 2018-04-27 10:12 | MP ---
cc: John Mayer MD DATE OF OPERATION: 04/27/2018 PREOPERATIVE DIAGNOSES: A 37-week gestation, insulin-dependent diabetes mellitus, polyhydramnios, previous , breech presentation, intolerance of labor with minimal variability and late deceleration. POSTOPERATIVE DIAGNOSES: A 37-week gestation, insulin-dependent diabetes mellitus, polyhydramnios, previous ,breech presentation, intolerance of labor with minimal variability and late deceleration with delivery of viable male fetus with pH 6.958, base excess - 7.3, pCO2 of 111.heavy meconium SURGEON: John Mayer MD. TECHNIQUE OF THE PROCEDURE: Via a Pfannenstiel incision low transverse section, repeat. FINDINGS: Multiple abdominal and bladder adhesions to the uterus, breech presentation. Normal uterus, ovaries, and tubes. SPECIMEN OBTAINED: Cord blood for pH, placenta, and fetus. ESTIMATED BLOOD LOSS: 700 mL. URINE OUTPUT: Clear. DETAILS OF PROCEDURE: The patient presented this morning to testing center, was put on monitor, and minimal variability for a few minutes was noticed with a late deceleration after contraction. Dr. Mayer was notified, evaluated the patient, and decision for a was made. The patient was transferred to labor and delivery. IV was started. Oxygen was supplemented and the patient was put on left side. The procedure was explained and consent for repeat section was signed. The patient was taken to the operating room. Spinal anesthesia was conducted. The patient was put in supine position, prepped and draped in the usual sterile fashion. Surgical pause was done. Anesthesia was tested and found out to be adequate. In a place of old scar, a Pfannenstiel incision was made with a scalpel, carried down to the fascia. There was dense scarring of the fascia to the muscle. Meticulous dissection with second scalpel was done. Fascia was freed off the muscle. Muscle had been split in the midline as well as the peritoneum by sharp dissection. Bladder, which was adherent up high on lower uterine segment, was carefully dissected. Lower segment was exposed and entered with the scalpel via low transverse . This was extended craniocaudally bimanual traction. Breech presentation was encountered. Baby was delivered, as breech by gentle traction. The rest of the body, shoulders, and head followed without problems. Blood was milked towards the baby. After 30 seconds, cord was clamped, cut, and baby was handed to the emergency management consultant in attendance. There was copious meconium and copious amount of amniotic fluid. Cord blood was obtained for pH and cord blood was obtained for type and screen. Placenta was removed manually. Uterus was cleaned from blood clots and debris and was closed in 2 layers using 1-0 Monocryl continuous suture. There was oozing in the right corner and another figure-of-8 using 1-0 chromic was added. All surfaces had been hemostatic. Abdomen was cleaned from blood clots and debris. The uterus was placed back into abdominal cavity and all surfaces had been again inspected. No bleeding noted. Midline muscle and peritoneum had been reapproximated using 1-0 chromic continuous suture. Fascia was closed with 1-0 Vicryl continuous suture. Subcutaneous tissue was copiously irrigated. Bleeders had been cauterized. Subcutaneous tissue was reapproximated using 2-0 plain and the skin was closed using diego. The patient was moved to recovery room in stable condition after the count of sponges, instruments, and needles had been correct x 2. MD ROSA Wheeler/amaury , 09:45 AM , 09:59 AM MTDShannan
[2018-04-27] MEDS ORDERED: Oxytocin 30 Units/500ml Premix 30 UNITS/500 ML BAG ONE (10:42)
[2018-04-27 11:35] LABS: Bilirubin,Urine Negative (Negative); Color,Urine Yellow (Yellw/Straw); Glucose,Urine (UA) 150 mg/dL (Negative); Leukocyte Esterase,Urine Negative (Negative); Nitrite,Urine Negative (Negative); Specific Gravity,Urine 1.015 (1.002-1.035); Squamous Epithelial Cell,Urine 3 /hpf (0-5)
[2018-04-27 11:41] LABS: Clarity,Urine Clear (Clear)
[2018-04-27 11:50] LABS: Amphetamine Screen,Urine Neg (Neg); Barbiturate Screen,Urine Neg (Neg); Cannabinoid Screen,Urine Neg (Neg); Cocaine Screen,Urine Neg (Neg)
[2018-04-27 11:52] LABS: Opiate Screen,Urine Neg (Neg)
[2018-04-27] MEDS ORDERED: Insulin NovoLOG Aspart Correctional Sugar Inj SQ SCH ×2 (12:00)
[2018-04-27] MEDS ORDERED: Oxytocin 30 Units/500ml Premix 30 UNITS/500 ML BAG IV.SIG PRN (14:25)
[2018-04-27] MEDS: Sodium Chloride 0.45 % Inj 1,000 ML IV.CONT SCH (14:57)
[2018-04-27] MEDS: Insulin NovoLOG Aspart Correctional Sugar Inj SQ SCH ×3 (15:01→21:53)
[2018-04-27] MEDS ORDERED: Insulin Detemir Inj 1,000 UNIT/10 ML Vial SQ SCH (21:00)
[2018-04-27] MEDS: Ibuprofen 600 MG Tablet PO PRN (21:53)
[2018-04-28] MEDS: Ibuprofen 600 MG Tablet PO PRN ×3 (04:40→21:47)
[2018-04-28] MEDS: Sodium Chloride 0.45 % Inj 1,000 ML IV.CONT SCH ×3 (06:09→19:07)
[2018-04-28] MEDS: Insulin NovoLOG Aspart Correctional Sugar Inj SQ SCH ×4 (08:41→22:07)
[2018-04-28] MEDS: Prenatal Vit/Ca/Iron/Folic Acid Tablet PO SCH ×2 (08:42→08:43)
[2018-04-28] MEDS ORDERED: Insulin Detemir Inj 1,000 UNIT/10 ML Vial SQ ONE (09:00)
--- NOTE | 2018-04-28 09:08 | P.PNOB ---
Subjective Interval history: Postoperative day # 1 AFVSS overnight. Incision not draining. Decreased lochia. Denies dysuria. No breast tenderness. Appetite good. No nausea or vomiting. Positive flatus. Ambulating well. Denies calf pain or shortness of breath. Otherwise, she is doing well this morning and has no other complaints. Objective Vital Signs/I&O: Vital Signs 04/27/18 09:35 04/27/18 09:45 04/27/18 10:00 Temperature 97.4 F L Pulse Rate 99 H 86 90 Respiratory Rate 17 18 17 Blood Pressure 117/70 129/68 131/63 04/27/18 10:15 04/27/18 10:30 04/27/18 11:30 Temperature 98.2 F Pulse Rate 74 79 81 Respiratory Rate 18 16 17 Blood Pressure 118/73 114/60 112/64 04/27/18 12:47 04/27/18 17:00 04/27/18 20:00 Temperature 97.8 F 98.3 F 98.3 F Pulse Rate 85 92 H 63 Respiratory Rate 16 18 18 Blood Pressure 110/76 105/63 118/69 04/27/18 23:48 04/28/18 04:00 04/28/18 06:10 Temperature 98.2 F 98.3 F Pulse Rate 86 64 Respiratory Rate 18 18 16 Blood Pressure 108/57 L 111/61 Intake & Output 04/27/18 04/28/18 04/28/18 18:59 06:59 18:59 Weight 63 kg Other: Weight On Admission 63 kg Result Diagrams: 04/27/18 07:55 Objective Remarks: GENERAL: Well-nourished, well-developed patient. CARDIOVASCULAR: Regular rate and rhythm without murmurs, gallops, or rubs. RESPIRATORY: Breath sounds equal bilaterally. No accessory muscle use. ABDOMEN/GI: Abdomen soft, non-tender, bowel sounds present. Incision: Clean, dry and intact. Fundus: Firm, non-tender at umbilicus. GENITOURINARY: Light to moderate bleeding. EXTREMITIES: No cyanosis or edema, non-tender, without signs of DVT. Medications and IVs: Active Medications Citric Acid/Sodium Citrate (Sodium Citrate/Citric Acid Liq) 30 ml PO [employer] [facility] Stop: 05/01/18 07:59 Dextrose (D50w Vial) 50 ml IV.PUSH UNSCH PRN PRN Reason: PER HYPOGLYCEMIA PROTOCOL Diphtheria/Pertussis/Tetanus Vacc (Boostrix Vaccine Inj) 0.5 ml IM .ONCE ONE Stop: 04/28/18 16:01 Glucagon (Glucagon Inj) 1 mg OTHER PRN PRN PRN Reason: for Hypoglycemia Protocol Cefazolin Sodium 2,000 mg/ (Sodium Chloride) 100 mls @ 200 mls/hr IV.SIG [employer]OTOGRAMMETRY AIRPLANE PILOT [facility] Stop: 05/01/18 07:59 Lactated Ringer's (Lr 1000 Ml Inj) 1,000 mls @ 100 mls/hr IV.CONT .Q10H [facility] Stop: 04/28/18 10:24 Last Admin: 04/28/18 06:10 Dose: Not Given Oxytocin (Pitocin 30 Units/Ns 500 Ml Premix) 30 units in 500 mls @ 100 mls/hr IV.SIG PRN PRN PRN Reason: Heavy bleeding Stop: 04/28/18 14:24 Sodium Chloride (1/2 Normal Saline Inj) 1,000 mls @ 100 mls/hr IV.CONT .Q10H [facility] Last Admin: 04/28/18 07:35 Dose: Not Given Ibuprofen (Motrin) 600 mg PO Q6HR PRN PRN Reason: cramping Last Admin: 04/28/18 04:40 Dose: 600 mg Insulin Aspart (Novolog Insulin Correctional Sugar Inj) 0 unit SQ [facility]; Protocol Last Admin: 04/28/18 08:41 Dose: 4 unit Insulin Detemir (Levemir Inj) 15 unit SQ BID [facility] Ketorolac Tromethamine (Toradol Inj) 60 mg IM ONCE PRN PRN Reason: SEE LABEL COMMENTS Stop: 05/02/18 09:23 Measles/Mumps/Rubella Vaccine Live (M-M-R Ii Vaccine Inj) 0.5 ml SQ .ONCE ONE Stop: 04/28/18 16:01 Oxycodone/Acetaminophen (Percocet 5/325 Mg) 1 tab PO Q4H PRN PRN Reason: PAIN SCALE 3 TO 5 Last Admin: 04/28/18 04:40 Dose: 1 tab Oxycodone/Acetaminophen (Percocet 5/325 Mg) 2 tab PO Q4H PRN PRN Reason: PAIN SCALE 6 TO 10 Vit/Calcium/Iron/Folic Ac (Stuartnatal Plus 3) 1 tab PO DAILY [facility] Last Admin: 04/28/18 08:43 Dose: Not Given Sodium Chloride (Ns Flush) 2 ml IV.FLUSH BID [facility] Last Admin: 04/28/18 08:42 Dose: Not Given Sodium Chloride (Ns Flush) 2 ml IV.FLUSH PRN PRN PRN Reason: FLUSH AFTER USING IV ACCESS Assessment and Plan - Diagnosis (1) deliv due to previous difficult deliv, deliv, curr hospitaliz Code(s): O99.89 - Other specified diseases and conditions complicating , childbirth and the puerperium; Z87.59 - Personal history of other complications of , childbirth and the puerperium Status: Acute Plan: 22 y/o female who is POD# 1 s/p CXN. -Continue routine care. -Percocet and Motrin PRN pain. -Encouraged OOB. Advised pelvic rest for 6 wks. Will need a f/u appt. in 1 wk for incision check. -Re: ctrl, she would like to follow up with her outpatient OB. -D/c likely tomorrow. wdw Dr. Lowry (2) Insulin dependent diabetes mellitus Code(s): E11.9 - Type 2 diabetes mellitus without complications; Z79.4 - halfway (current) use of insulin Status: Acute Plan: Patient reports being a diabetic prior to and during this . Patient Levemir increased to 15 BID. Poorly controlled over night. -Medium-dose insulin sliding scale -15 units of Levemir BID -Q2hr glucose checks -Monitor for signs of hypoglycemia
[2018-04-28] MEDS: Docusate Sodium 100 MG Capsule PO SCH (13:09)
[2018-04-28] MEDS ORDERED: Measles/Mumps/Rubella Vaccine Inj 0.5 ML Vial SQ ONE (16:00)
[2018-04-28] MEDS ORDERED: Diphtheria/Tetanus/Pertussis Vaccine Inj 0.5 ML Syringe IM ONE (16:00)
[2018-04-28] MEDS: Insulin Detemir Inj 1,000 UNIT/10 ML Vial SQ SCH (21:49)
--- NOTE | 2018-04-29 08:10 | P.PNOB ---
Subjective Interval history: Patient is a 22-year-old delivered at 37 weeks and 5 days. Patient is operative day 2 emergent due to distress observed on heart tracing during routine diagnostic checkup. Patient's pain is well- controlled. Patient reports eating and drinking without nausea or vomiting. She reports minimal vaginal bleeding that she compares to less than a period and is ambulating well. Patient is urinating and passing flatus but has not yet had a bowel movement. Patient denies any chest pain, shortness of breath, nausea, vomiting, fever, chills, calf pain, or new lower extremity swelling. Objective Vital Signs/I&O: Vital Signs 04/28/18 20:00 Temperature 98.1 F Pulse Rate 90 Respiratory Rate 18 Blood Pressure 114/63 Result Diagrams: 04/27/18 07:55 Objective Remarks: GENERAL: Well-nourished, well-developed patient. CARDIOVASCULAR: Regular rate and rhythm without murmurs, gallops, or rubs. RESPIRATORY: Breath sounds equal bilaterally. No accessory muscle use. ABDOMEN/GI: Abdomen soft, non-tender, bowel sounds present. Incision: Clean, dry and intact. Fundus: Firm, tender at umbilicus. GENITOURINARY: Light to moderate bleeding. EXTREMITIES: No cyanosis or edema, non-tender, without signs of DVT. Medications and IVs: Active Medications Citric Acid/Sodium Citrate (Sodium Citrate/Citric Acid Liq) 30 ml PO [employer] [facility] Stop: 05/01/18 07:59 Dextrose (D50w Vial) 50 ml IV.PUSH UNSCH PRN PRN Reason: PER HYPOGLYCEMIA PROTOCOL Docusate Sodium (Colace) 100 mg PO BID [facility] Last Admin: 04/28/18 13:09 Dose: Not Given Glucagon (Glucagon Inj) 1 mg OTHER PRN PRN PRN Reason: for Hypoglycemia Protocol Cefazolin Sodium 2,000 mg/ (Sodium Chloride) 100 mls @ 200 mls/hr IV.SIG [employer] [facility] Stop: 05/01/18 07:59 Sodium Chloride (1/2 Normal Saline Inj) 1,000 mls @ 100 mls/hr IV.CONT .Q10H [facility] Last Admin: 04/28/18 19:07 Dose: Not Given Ibuprofen (Motrin) 600 mg PO Q6HR PRN PRN Reason: cramping Last Admin: 04/28/18 21:47 Dose: 600 mg Insulin Aspart (Novolog Insulin Correctional Sugar Inj) 0 unit SQ ACHS [facility]; Protocol Last Admin: 04/28/18 22:07 Dose: 4 unit Insulin Detemir (Levemir Inj) 15 unit SQ BID [facility] Last Admin: 04/28/18 21:49 Dose: 15 unit Ketorolac Tromethamine (Toradol Inj) 60 mg IM ONCE PRN PRN Reason: SEE LABEL COMMENTS Stop: 05/02/18 09:23 Oxycodone/Acetaminophen (Percocet 5/325 Mg) 1 tab PO Q4H PRN PRN Reason: PAIN SCALE 3 TO 5 Last Admin: 04/28/18 21:48 Dose: 1 tab Oxycodone/Acetaminophen (Percocet 5/325 Mg) 2 tab PO Q4H PRN PRN Reason: PAIN SCALE 6 TO 10 Vit/Calcium/Iron/Folic Ac (Stuartnatal Plus 3) 1 tab PO DAILY [facility] Last Admin: 04/28/18 08:43 Dose: Not Given Sodium Chloride (Ns Flush) 2 ml IV.FLUSH BID [facility] Last Admin: 04/28/18 22:10 Dose: Not Given Sodium Chloride (Ns Flush) 2 ml IV.FLUSH PRN PRN PRN Reason: FLUSH AFTER USING IV ACCESS Assessment and Plan - Diagnosis (1) deliv due to previous difficult deliv, deliv, curr hospitaliz Code(s): O99.89 - Other specified diseases and conditions complicating , childbirth and the puerperium; Z87.59 - Personal history of other complications of , childbirth and the puerperium Status: Acute Plan: Patient is a 22-year-old delivered at 37 weeks and 5 days. Patient is operative day 2 emergent due to distress observed on heart tracing during routine diagnostic checkup. -Discharge home -Continue routine care. -Percocet and Motrin PRN pain. -Follow up in one week for incision check -Encouraged OOB. Advised pelvic rest for [address] Lowry (2) Insulin dependent diabetes mellitus Code(s): E11.9 - Type 2 diabetes mellitus without complications; Z79.4 - intermediate card tender (current) use of insulin Status: Acute Plan: Patient reports being a diabetic prior to and during this . Patient Levemir increased to 15 BID. Poorly controlled over night. -Medium-dose insulin sliding scale -15 units of Levemir BID -Q2hr glucose checks -Monitor for signs of hypoglycemia - Attending Attestation The patient was seen and examined by me and I participated in all bustos decision making. Continue routine and postoperative care. Anticipate discharge home today as patient desires to visit at [facility]. SMS
[2018-04-29] MEDS: Docusate Sodium 100 MG Capsule PO SCH ×2 (08:26→08:49)
[2018-04-29] MEDS: Insulin NovoLOG Aspart Correctional Sugar Inj SQ SCH (08:26)
[2018-04-29 08:48] VITALS: BP 110/69; PULSE 86; RESP 16; TEMP 98.2
[2018-04-29] MEDS: Prenatal Vit/Ca/Iron/Folic Acid Tablet PO SCH (08:50)
[2018-04-29] MEDS: Insulin Detemir Inj 1,000 UNIT/10 ML Vial SQ SCH (08:50)
== END 2018-04-29 10:37 | disposition home or self-care (01) ==
LOC: H2E 07:48 → H1EA 11:12
PROVIDERS: ADMIT Obstetrics & Gynecology; ATTEND Obstetrics & Gynecology